=== PATIENT | male | born 1960 | race Caucasian/White ===

== ENCOUNTER 2016-12-20 19:09 | Emergency (ER) | payer MEDICAID, OTHER ==
[~2016-12-20] VITALS: Ht 167.6 cm; Wt 102.3 kg
[2016-12-20 19:13] VITALS: BP 151/93; PULSE 76; RESP 16; O2SAT 96
--- NOTE | 2016-12-20 19:39 | DRSVH ---
PROCEDURE: X-RAY CHEST ONE VIEW, PORTABLE ([id number]) INDICATIONS: pain TECHNIQUE: One view of the chest was acquired. COMPARISON: None. FINDINGS: Surgical changes and devices: None. Lungs and pleura: No pleural effusions or pneumothorax. Lungs are clear. Mediastinum: Mediastinal contours appear normal. Heart size is normal. Bones and chest wall: No suspicious bony lesions. Overlying soft tissues appear unremarkable. IMPRESSION: No acute pulmonary process. Dictated by: Kimbre Ramirez M.D. on 12/20/2016 at 19:38 Approved by: Kimber Ramirez M.D. on 12/20/2016 at 19:38
[2016-12-20 19:58] LABS: EOSINOPHILS % (AUTO) 2.6 % (0-5); MONOCYTES % (AUTO) 8.9 % (4-12); Mean Corpuscular Volume 91.2 fL (81-100); Platelet Count 252 bil/L (150-400)
--- NOTE | 2016-12-20 19:58 | ED.REPORT ---
HPI-Chest Pain 40 and Over Date of Service Dec 20, 2016 ED Provider: Brad Hinojosa MD This is a 56 year old male with a history of DM type II and hypertension presenting to the emergency department due to a 2-second episode of sudden onset substernal chest pain that occurred two hours ago and is now resolved. This was associated with lightheadedness and left arm discomfort that lasted for a few minutes and is now resolved. Denies shortness of breath, diaphoresis, nausea, vomiting, palpitations, hematochezia, hematemesis, or headache. Reports similar episodes of chest pain in the past. Nursing Notes Stated Complaint: CHEST PAIN,NUMB ARM LEFT Chief Complaint: Chest Pain Nursing Notes Reviewed: Yes ([place], Queryday not reconciled) Allergies: Coded Allergies: No Known Allergies (Unverified , 12/20/16) General Time Seen by MD: 19:49 Chief Complaint Chest pain Hx Obtained From: Patient Arrived By: Walk-in Sudden in Onset?: Yes Onset Occurred: 1 - 4 hours ago Symptom Duration: Since onset Severity: Current: No pain currently Severity: Maximum: Moderate Pertinent Negative: Pt denies other symptoms Recent Healthcare: No recent doctor visit, No recent hospitalization Similar Sx Previous: No Risk Factors )( CAD Risk Stratification Diabetes mellitus HypertensionNo Family history, No Hyperlipidemia Risk factors reviewed Past Medical History Past Medical History Reports: Diabetes mellitus, GERD (Patient DC'd omeprazole 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 Physical Exam Initial Vital Signs Vital Signs (First) Date Time Temp Pulse Resp B/P Pulse Ox O2 Delivery O2 Flow Rate FiO2 12/20/16 19:13 36.1 76 16 151/93 96 12/20/16 23:00 Room Air Initial VS: Reviewed, Vital signs normal (trace hypertension) Head / Eyes: Atraumatic, Normocephalic, PERRL ENT: Mucous membranes moist, Conjunctiva normal, No scleral icterus Neck: Supple, Non-tender, Full range of motion Extremities: Vascular intact, Neuro intact, No swelling, No tenderness Skin: Warm, Dry, No cyanosis Neurologic: Alert, Oriented, Nonfocal Psychiatric: Mood/affect normal, Behavior normal, Normal thought content General/Constitutional: Awake, Alert Appearance / Presentation: Positive: Obese Respiratory / Chest: Breath sounds = bilat, No respiratory distress, No rales, No rhonchi, No stridor, No chest tenderness Wheezing / Retractions: Positive: Wheeze insp/exp diffuse (slight) Cardiovascular: Heart rate NL, Regular rhythm, Heart sounds NL, No murmurs, Peripheral circulation NL, Pulses = bilaterally, No gross BP differential Abdomen: Soft, Non-tender, McBurney's non-tender, No guarding, No rebound, BS normoactive, No distention, No hernia, No palpable mass Interpretation & Diagnostics Lab Results Interpretation Result Diagram: 12/20/16194412/20/161944 Test 12/20/16 19:45 12/20/16 21:23 White Blood Count 9.9th/mm3 (3.8-10.1) Red Blood Count 4.77mil/mm3 (4.40-5.80) Hemoglobin 14.8g/dL (13.8-17.2) Hematocrit 43.5% (41.0-50.0) Mean Corpuscular Volume 91.2fL (81-100) Mean Corpuscular Hemoglobin 31.0pg (27.0-35.0) Mean Corpuscular Hemoglobin Concent 34.0% (32.0-37.0) Red Cell Distribution Width 13.1% (12.3-15.4) Platelet Count 252bil/L (150-400) Neutrophils (%) (Auto) 61.0% (40-74) Lymphocytes (%) (Auto) 26.3% (14-46) Monocytes (%) (Auto) 8.9% (4-12) Eosinophils (%) (Auto) 2.6% (0-5) Basophils (%) (Auto) 1.0% (0-3) Sodium Level 137mEq/L (134-144) Potassium Level 4.2mEq/L (3.5-5.2) Chloride Level 101mEq/L (97-108) Carbon Dioxide Level 21mmol/L (18-29) Blood Urea Nitrogen 14mg/dL (6-24) Creatinine 0.76mg/dL (0.76-1.27) Estimat Glomerular Filtration Rate 113mL/min (>59) Glucose Level 123mg/dL (60-99) Calcium Level 8.9mg/dL (8.5-10.1) Magnesium Level 2.2mg/dL (1.6-2.6) Total Bilirubin 0.2mg/dL (0.0-1.2) Aspartate Amino Transf (AST/SGOT) 16U/L (0-50) Alanine Aminotransferase (ALT/SGPT) 24U/L (0-44) Alkaline Phosphatase 67U/L (25-150) Total Protein 7.1g/dL (6.4-8.4) Albumin 4.2g/dL (3.4-5.0) Hold Zamudio Top Tube Received (Received) Troponin T 0.010ug/L (0.0-0.011) Lab Results Interpretation: CBC normal CMP normal Troponin 2 negative ECG Interpretation ECG Interpretation: EKG demonstrated normal sinus rhythm at a rate of 72 with no ischemic or rhythmic findings, no prior EKG available for comparison Time: 19:58 Interpreted by: ED physician X-Ray Chest Interpretation Chest Xray Interpretation: IMPRESSION: No acute pulmonary process. Dictated by: Kimber Ramirez M.D. on 12/20/2016 at 19:38 Approved by: Kimber Ramirez M.D. on 12/20/2016 at 19:38 Re-Eval/Medical Decision Med Decision/Clinical Course This is a 56-year-old male who is no previously diagnosed coronary disease but reports that he is "for years" had a continuous level of some discomfort in his chest is very atypical. However today while talking with others, several hours before he came in its sudden onset of a severe discomfort that he described as electric shock in his chest that lasted for a few seconds and then resolved. However this pain was different than anything he ever experienced and he reports it really caught his attention, he told others who brought him into the ED. He did not mention it initially, but openly admits to also having some left shoulder ache all day. There is no clear exertional component, no diaphoresis, no palpitations, is not currently having any discomfort on arrival to department. He is a smoker. He has diet-controlled diabetes. Reports borderline hypertension cholesterol. He is not aware of any family history. He generally appears well anxious. His lungs are clear, he has no overt findings of heart failure. He has no findings of venous thromboembolism. His EKG is normal without ischemic or dysrhythmic findings. Chest x-ray was negative. Blood work 2 is normal including 2 sets of troponin. His heart score is 3 which the puts him at low risk for MACE. This risk factors of smoking, HTN, and DM put him at risk, although again his symptoms are very atypical and has no other findings. The patient wishes to be discharged home, I think this is entirely reasonable and the patient is a reasonable For discharge with follow-up. I currently have a PCP as been [facility]. I have attempted to contact the clinic to facilitate the followup for a discussion of stress testing, but have been told no one is child nutrition assistant for the clinic tonight. The patient and family have given careful discharge instructions. Low-dose aspirin daily still recommended. Smoking cessation was also discussed. The need to return if he has recurrent, new, or worsening symptoms was reviewed. Patient is discharged asymptomatic in good condition. He is remained slightly frustrated that no one has ever been able throughout the chronic chest discomfort he has had for years either, but is understanding. Source of Hx: Old records Differential Diagnosis: Positive: Chest pain (chronic), Chest pain, acute, GERD (chronic), Negative: Acute coronary syndrome, Congestive heart failure, Dysrhythmia, Esophageal rupture, Gun shot wound chest, Myocardial infarction, Pericarditis, Pleurisy, Pneumonia, Pneumothorax, Pulmonary edema, Pulmonary embolism, Rib fracture, Stab wound chest Counseled Regarding: Diagnosis, Lab results, Need for follow-up Discharge & Departure Primary Impression: Chest pain Chest pain type: unspecified Qualified Code: R07.9 - Chest pain, unspecified Disposition: Home Discharge Condition All VS Reviewed: Yes Condition: Stable Additional Instructions: 1. Your tests in the emergency department were normal 2. Your EKG revealed no findings of a heart attack or other dangerous cause. 3. You had 2 measurements of the heart marker troponin which were both normal, with no markers of a heart. 4. Your chest Xray was normal 5. At this point, a dangerous cause of the chest and arm discomfort has not been identified. However, given your symptoms any risk factors we recommend close follow-up and for you to discuss obtaining a "stress test" to complete a cardiac (heart) evaluation. Call the [facility] tomorrow to schedule an appointment, tell them you were seen in the ED and were instructed you needed a recheck. 6. Take a low dose aspirin 81mg daily until you have a stress test. 7. Return if new or worsening symtpoms (you have chest discomfort that returns and lasts for more than 15 minutes, return directly to the emergency department- if he developed diaphoresis, or exertional symptoms, return to the emergency department) 8. Work on stopping smoking. Referrals: [facility] Scribe Attestation Portions of this note were transcribed by Pavel Roman. I, Dr. Hinojosa personally performed the history, physical exam and medical decision-making; I reviewed and confirmed the accuracy of the information in the transcribed note. Signed by: nyla Salas. 12/20/2016, 03:00. Brad Hinojosa MD Dec 20, 2016 19:58 PAVEL ROMAN Dec 20, 2016 20:05
[2016-12-20] MEDS ORDERED: Nitroglycerin 2% 1 Gm Ointment TOPICAL SCH (20:25)
[2016-12-20 20:27] LABS: TROPONIN T < 0.010 ug/L (0.0-0.011)
[2016-12-20 20:33] LABS: Magnesium 2.2 mg/dL (1.6-2.6)
[2016-12-20 23:00] VITALS: BP 138/72; PULSE 72; RESP 20; O2SAT 97
== END 2016-12-20 23:01 | disposition home or self-care (01) ==
LOC: SED 19:09
DX: R07.2 Precordial pain (principal); E11.9 Type 2 diabetes mellitus without complications; K21.9 Gastro-esophageal reflux disease without esophagitis; I10 Essential (primary) hypertension; F17.200 Nicotine dependence, unspecified, uncomplicated